=== PATIENT | male | born 1935 | race Two or more races ===

== ENCOUNTER 2017-06-10 02:32 | Emergency (ER) | payer MEDICARE, MEDICAID ==
[~2017-06-10] VITALS: Ht 167.6 cm; Wt 81.6 kg
[2017-06-10 02:45] VITALS: BP 102/54
== END 2017-06-10 07:15 | disposition left against medical advice (07) ==
LOC: EDBD 02:32 → ER 02:37
DX: R04.0 Epistaxis (principal); Z53.21 Procedure and treatment not carried out due to patient leaving prior to being seen by health care provider
CPT/HCPCS: 93005; J7030